=== PATIENT | female | born 1975 | race Two or more races ===

== ENCOUNTER 2017-12-29 16:53 | Emergency (ER) | payer BC ==
[2017-12-29] MEDS ORDERED: Diphtheria,Pertussis(Acell),Tetanus Vaccine 0.5 ML Syringe IM ONE (17:09)
[2017-12-29] MEDS ORDERED: Lidocaine 1% 20 ML MDV INJECT ONE (17:09)
[2017-12-29] MEDS ORDERED: Insulin Regular, Human 100 Units/ML 10 ML Vial IVPUSH ONE (17:18)
--- NOTE | 2017-12-29 17:44 | EDM.PDOC ---
ED HPI GENERAL MEDICAL PROBLEM - General Chief Complaint: Laceration Stated Complaint: LACERATION RT THUMB Time Seen by Provider: 12/29/17 17:40 Source of Information: Reports: Patient - History of Present Illness INITIAL COMMENTS - FREE TEXT/NARRATIVE: HISTORY AND PHYSICAL: History of present illness: [Patient cut herself on her dorsal vomiting while reaching into a limiting closet scraping her thumb on a piece of metal has linear laceration over the interphalangeal joint on the right thumb Socially 1 inch linear laceration no bleeding at current injury occurred at 1 PM currently 6 PM No fever nausea vomiting chills sweats no redness warmth or pus drainage unaffected above the base of the thumb entirely neurovascularly intact tendon function flexor and extension are intact pre-and post suture ] Review of systems: As per history of present illness and below otherwise all systems reviewed and negative. Past medical history: As per history of present illness and as reviewed below otherwise noncontributory. Surgical history: As per history of present illness and as reviewed below otherwise noncontributory. Social history: No reported history of drug or alcohol abuse. Family history: As per history of present illness and as reviewed below otherwise noncontributory. Physical exam: HEENT: Atraumatic, normocephalic, pupils reactive, negative for conjunctival pallor or scleral icterus, mucous membranes moist, throat clear, neck supple, nontender, trachea midline. Lungs: Clear to auscultation, breath sounds equal bilaterally, chest nontender. Heart: S1S2, regular, negative for clicks, rubs, or JVD. Abdomen: Soft, nondistended, nontender. Negative for masses or hepatosplenomegaly. Negative for costovertebral tenderness. Pelvis: Stable nontender. Genitourinary: Deferred. Rectal: Deferred. Extremities: Atraumatic, negative for cords or calf pain. Neurovascular unremarkable. Neuro: Awake, alert, oriented. Cranial nerves II through XII unremarkable. Cerebellum unremarkable. Motor and sensory unremarkable throughout. Exam nonfocal. Skin/right thumb as per history of present illness otherwise unremarkable Diagnostics: [Clinical ] Therapeutics: [Lidocaine 1% no epinephrine Tetanus status is updated today Wound Cleansed and explored #2 4-0 Prolene sutures interrupted 1 mL lidocaine for anesthesia No complication no complaint Standard wound care instructions Sutures out in 10 days Splint for wound protection ] Impression: [1 inch linear laceration] Definitive disposition and diagnosis as appropriate pending reevaluation and review of above. Right 1-Thumb Pain Score (Numeric/FACES): 7 - Related Data Allergies Allergy/AdvReac Type Severity Reaction Status Date / Time No Known Allergies Allergy Verified 12/29/17 17:03 Home Meds: Home Meds . [No Known Home Meds] 12/29/17 [History] Past Medical History Other HEENT History: wears glasses Cardiovascular History: Reports: High Cholesterol Gastrointestinal History: Reports: GERD, Other (See Below) Other Gastrointestinal History: "my liver is abnormal in color" Genitourinary History: Reports: None [facility] [employer] History: Reports: Ectopic , Musculoskeletal History: Reports: Arthritis Psychiatric History: Reports: Depression - Infectious Disease History Infectious Disease History: Reports: Chicken Pox - Past Surgical History Head Surgeries/Procedures: Reports: None Female Surgical History: Reports: Tubal Ligation Social & Family History - Family History Family Medical History: Noncontributory - Tobacco Use Smoking Status *Q: Current Every Day Smoker Years of Tobacco use: 25 Packs/Tins Daily: 0.8 - Recreational Drug Use Recreational Drug Use: No ED ROS GENERAL - Review of Systems Review Of Systems: ROS reveals no pertinent complaints other than HPI. ED EXAM, SKIN/RASH Exam: See Below Course - Vital Signs Last Recorded V/S: Last Vital Signs Temp Pulse 77 12/29/17 17:01 Resp 18 12/29/17 17:01 BP Pulse Ox 94 L 12/29/17 17:01 - Orders/Labs/Meds Orders: Active Orders 24 hr Category Date Time Status Vaccines to be Administered [RC] PER UNIT ROUTINE Care 12/29/17 17:09 Active Meds: Medications Discontinued Medications Generic Name Dose Route Start Last Admin Trade Name Freq PRN Reason Stop Dose Admin Diphtheria/Tetanus/Acell Pertussis 0.5 ml 12/29/17 17:09 Adacel IM 12/29/17 17:10 .ONCE ONE Lidocaine HCl 20 ml 12/29/17 17:09 Xylocaine 1% INJECT 12/29/17 17:10 ONETIME ONE Departure - Departure Time of Disposition: 17:43 Disposition: Home, Self-Care 01 Condition: Good Clinical Impression: Laceration - Discharge Information Referrals: Jenn Ponce DO [Primary Care Provider] - Forms: ED Department Discharge Additional Instructions: Standard wound care instructions Keep wound clean and dry for 48 hours Neosporin Band-Aid Status is updated today Splint for protection Return if redness warmth or pus drainage should this develop Sutures out in 10 days The following information is given to patients seen in the emergency department who are being discharged to home. This information is to outline your options for follow-up care. We provide all patients seen in our emergency department with a follow-up referral. The need for follow-up, as well as the timing and circumstances, are variable depending upon the specifics of your emergency department visit. If you don't have a primary care physician on staff, we will provide you with a referral. We always advise you to contact your personal physician following an emergency department visit to inform them of the circumstance of the visit and for follow-up with them and/or the need for any referrals to a consulting specialist. The emergency department will also refer you to a specialist when appropriate. This referral assures that you have the opportunity for follow-up care with a specialist. All of these measure are taken in an effort to provide you with optimal care, which includes your follow-up. Under all circumstances we always encourage you to contact your private physician who remains a resource for coordinating your care. When calling for follow-up care, please make the office aware that this follow-up is from your recent emergency room visit. If for any reason you are refused follow-up, please contact the [facility] emergency department at and asked to speak to the emergency department charge nurse. - My Orders Last 24 Hours: My Active Orders 12/29/17 17:09 Vaccines to be Administered [RC] PER UNIT ROUTINE - Assessment/Plan Last 24 Hours: My Active Orders 12/29/17 17:09 Vaccines to be Administered [RC] PER UNIT ROUTINE
[2017-12-29 18:14] VITALS: BP 126/74
== END 2017-12-29 18:12 | disposition home or self-care (01) ==
LOC: MW.ED 16:53
DX: S61.011A Laceration without foreign body of right thumb without damage to nail, initial encounter (principal); F17.210 Nicotine dependence, cigarettes, uncomplicated; W45.8XXA Other foreign body or object entering through skin, initial encounter; Z23 Encounter for immunization
CPT/HCPCS: 12001; 90471; 90715; 99282; 99282-25

== ENCOUNTER 2020-01-22 19:45 | Emergency (ER) | payer BC ==
[2020-01-22 20:14] VITALS: BP 146/103; PULSE 113
--- NOTE | 2020-01-22 20:43 | EDM.PDOC ---
ED HPI GENERAL MEDICAL PROBLEM - General Chief Complaint: Laceration Stated Complaint: NEED STICHES Time Seen by Provider: 01/22/20 20:42 Source of Information: Reports: Patient History Limitations: Reports: No Limitations - History of Present Illness INITIAL COMMENTS - FREE TEXT/NARRATIVE: HISTORY AND PHYSICAL: History of present illness: Patient is a 44-year-old female presents to the ED for laceration. Patient states she cut her left pinky finger this evening while cutting some bread. She states she is UTD on tetanus Review of systems: As per history of present illness and below otherwise all systems reviewed and negative. Past medical history: As per history of present illness and as reviewed below otherwise noncontributory. Surgical history: As per history of present illness and as reviewed below otherwise noncontributory. Social history: No reported history of drug or alcohol abuse. Family history: As per history of present illness and as reviewed below otherwise noncontributory. Physical exam: General: Patient sitting comfortably in no acute distress and nontoxic appearing HEENT: Atraumatic, normocephalic, pupils reactive, negative for conjunctival pallor or scleral icterus, mucous membranes moist, throat clear, neck supple, nontender, trachea midline. No meningeal signs. Lungs: Clear to auscultation, breath sounds equal bilaterally, chest nontender. Heart: S1S2, regular, negative for clicks, rubs, or overt murmur. Abdomen: Soft, nondistended, nontender. Negative for masses or hepatosplenomegaly. Negative for costovertebral tenderness. No rigidity, rebound , guarding. Pelvis: Stable nontender. Genitourinary: Deferred. Rectal: Deferred. Extremities: 1cm laceration to the pavon surface of the left hand at the CMP of the pinky finger. Full ROM of the finger. negative for cords or calf pain. Neurovascular unremarkable. Neuro: Awake, alert, oriented. Cranial nerves II through XII unremarkable. Cerebellum unremarkable. Motor and sensory unremarkable throughout. Exam nonfocal. Notes: Diagnostics: none Therapeutics: lac repair - see procedure note Prescriptions: none Impression: Laceration Plan: Keep the area clean and dry as instructed Follow up for suture removal in 10-14 days Return to ED as needed as discussed Definitive disposition and diagnosis as appropriate pending reevaluation and review of above. left little finger Pain Score (Numeric/FACES): 8 - Related Data Allergies Allergy/AdvReac Type Severity Reaction Status Date / Time No Known Allergies Allergy Verified 01/22/20 20:14 Home Meds: Home Meds . [No Known Home Meds] 12/29/17 [History] Past Medical History - Past Health History Medical/Surgical History: Denies Medical/Surgical History Other HEENT History: wears glasses Cardiovascular History: Reports: High Cholesterol Gastrointestinal History: Reports: GERD, Other (See Below) Other Gastrointestinal History: "my liver is abnormal in color" Genitourinary History: Reports: None [employer] History: Reports: Ectopic , Musculoskeletal History: Reports: Arthritis Psychiatric History: Reports: Depression - Infectious Disease History Infectious Disease History: Reports: Chicken Pox - Past Surgical History Head Surgeries/Procedures: Reports: None Female Surgical History: Reports: Tubal Ligation Social & Family History - Family History Family Medical History: Noncontributory - Tobacco Use Smoking Status *Q: Current Every Day Smoker Years of Tobacco use: 25 Packs/Tins Daily: 1 - Recreational Drug Use Recreational Drug Use: No ED ROS GENERAL - Review of Systems Review Of Systems: Comprehensive ROS is negative, except as noted in HPI. ED EXAM, SKIN/RASH Exam: See Below (see Dictation) ED SKIN PROCEDURES - Laceration/Wound Repair Left Digit - 5th (Baby) Appearance: Superficial, Subcutaneous, Linear, Clean Distal NVT: Neuro & Vascular Intact, No Tendon Injury Anesthetic Type: Local Local Anesthesia - Lidocaine (Xylocaine): 1% Plain Local Anesthetic Volume: 3cc Skin Prep: Chlorhexidine (Hibiciens), Saline Saline Irrigation (cc's): 250 Exploration/Debridement/Repair: Wound Explored, In a Bloodless Field, Explored to Base, No Foreign Material Found Closed with: Sutures Lac/Wound length In cm: 1 Suture Size: 4-0 # of Sutures: 4 Suture Type: Nylon, Interrupted, Simple Course - Vital Signs Last Recorded V/S: Last Vital Signs Temp 98.1 F 01/22/20 20:11 Pulse 113 H 01/22/20 20:11 Resp 18 01/22/20 20:11 BP 146/103 H 01/22/20 20:11 Pulse Ox 97 01/22/20 20:11 - Orders/Labs/Meds Meds: Medications Discontinued Medications Generic Name Dose Route Start Last Admin Trade Name Freq PRN Reason Stop Dose Admin Lidocaine HCl 5 ml 01/22/20 20:42 Xylocaine-Mpf 1% INJECT 01/22/20 20:43 ONETIME ONE Departure - Departure Time of Disposition: 21:15 Disposition: Home, Self-Care 01 Condition: Good Clinical Impression: Laceration of left little finger - Discharge Information Instructions: Laceration Care, Adult, [id number] Referrals: Jenn Ponce DO [Primary Care Provider] - Forms: ED Department Discharge Additional Instructions: The following information is given to patients seen in the emergency department who are being discharged to home. This information is to outline your options for follow-up care. We provide all patients seen in our emergency department with a follow-up referral. The need for follow-up, as well as the timing and circumstances, are variable depending upon the specifics of your emergency department visit. If you don't have a primary care physician on staff, we will provide you with a referral. We always advise you to contact your personal physician following an emergency department visit to inform them of the circumstance of the visit and for follow-up with them and/or the need for any referrals to a consulting specialist. The emergency department will also refer you to a specialist when appropriate. This referral assures that you have the opportunity for follow-up care with a specialist. All of these measure are taken in an effort to provide you with optimal care, which includes your follow-up. Under all circumstances we always encourage you to contact your private physician who remains a resource for coordinating your care. When calling for follow-up care, please make the office aware that this follow-up is from your recent emergency room visit. If for any reason you are refused follow-up, please contact the [facility] Emergency Department at and asked to speak to the emergency department charge nurse. [facility] [address] [place] [id number] [facility] [address] [place] [id number] Keep the area clean and dry as instructed Follow up for suture removal in 10-14 days Return to ED as needed as discussed Sepsis Event Note - Evaluation Sepsis Screening Result: No Definite Risk - Focused Exam Vital Signs: Vital Signs Temp Pulse Resp BP Pulse Ox 01/22/20 20:11 98.1 F 113 H 18 146/103 H 97 Date Exam was Performed: 01/22/20 Time Exam was Performed: 21:57
== END 2020-01-22 21:35 | disposition home or self-care (01) ==
LOC: MW.ED 19:45
DX: S61.217A Laceration without foreign body of left little finger without damage to nail, initial encounter (principal); M19.90 Unspecified osteoarthritis, unspecified site; F17.210 Nicotine dependence, cigarettes, uncomplicated; W26.0XXA Contact with knife, initial encounter
CPT/HCPCS: 12001; 99282

== ENCOUNTER 2020-09-13 16:38 | Emergency (ER) | payer BC ==
[2020-09-13] MEDS ORDERED: Octyl 2-Cyanoacrylate 1 Tube TOP ONE (17:25)
--- NOTE | 2020-09-13 17:29 | EDM.PDOC ---
ED HPI GENERAL MEDICAL PROBLEM - General Chief Complaint: Laceration Stated Complaint: LT POINTER FINGER LACERATION Time Seen by Provider: 09/13/20 17:15 Source of Information: Reports: Patient History Limitations: Reports: No Limitations - History of Present Illness INITIAL COMMENTS - FREE TEXT/NARRATIVE: History of present illness: [Patient is 45-year-old female who presents with a laceration to her left index finger on the palmar side. She states that she was cutting a potato and it slipped and cut her finger. Initially significant amount of bleeding, it has since subsided with pressure. States that her tetanus shot is up-to-date within the last 5 years. Denies any other injuries or complaints. Laceration does not involve the nailbed. Otherwise asymptomatic.] Review of systems: As per history of present illness and below otherwise all systems reviewed and negative. Past medical history: As per history of present illness and as reviewed below otherwise n oncontributory. Surgical history: As per history of present illness and as reviewed below otherwise noncontributory. Social history: No reported history of drug or alcohol abuse. Family history: As per history of present illness and as reviewed below otherwise noncontributory. Physical exam: General: Awake, alert, no acute distress, A&O X3. HEENT: Atraumatic, normocephalic, pupils reactive, negative for conjunctival pallor or scleral icterus, mask on Lungs: Clear to auscultation, breath sounds equal bilaterally, chest nontender. Heart: RRR, normal S1S2 Abdomen: Soft, nondistended, nontender. Pelvis: Stable nontender. Genitourinary: Deferred. Rectal: Deferred. Extremities: U-shaped superficial laceration to the palmar surface of the distal left second finger. Does not involve the nailbed. No active bleeding. Left finger is neurovascularly intact Neuro: Motor and sensory grossly intact throughout. Exam nonfocal. Diagnostics: [] Therapeutics: [] Impression: [] Plan: [] Definitive disposition and diagnosis as appropriate pending reevaluation and review of above. Left Finger-Index Pain Score (Numeric/FACES): 8 - Related Data Allergies Allergy/AdvReac Type Severity Reaction Status Date / Time No Known Allergies Allergy Verified 09/13/20 17:18 Home Meds: Home Meds . [No Known Home Meds] 12/29/17 [History] Past Medical History - Past Health History Medical/Surgical History: Denies Medical/Surgical History Other HEENT History: wears glasses Cardiovascular History: Reports: High Cholesterol Gastrointestinal History: Reports: GERD, Other (See Below) Other Gastrointestinal History: "my liver is abnormal in color" Genitourinary History: Reports: None [employer] History: Reports: Ectopic , Musculoskeletal History: Reports: Arthritis Psychiatric History: Reports: Depression - Infectious Disease History Infectious Disease History: Reports: Chicken Pox - Past Surgical History Head Surgeries/Procedures: Reports: None Female Surgical History: Reports: Tubal Ligation Social & Family History - Family History Family Medical History: Noncontributory ED ROS GENERAL - Review of Systems Review Of Systems: Comprehensive ROS is negative, except as noted in HPI. ED EXAM, SKIN/RASH Exam: See Below (see h and p) ED SKIN PROCEDURES - Laceration/Wound Repair Left Digit - 2nd (Index) Appearance: Superficial Distal NVT: Neuro & Vascular Intact, No Tendon Injury Skin Prep: Isopropyl Alcohol (Alcohol) Saline Irrigation (cc's): 10 Exploration/Debridement/Repair: Wound Explored, Explored to Base, No Foreign Material Found Closed with: Dermabond Lac/Wound length In cm: 2 Tetanus Status Addressed: Yes Complications: No Course - Vital Signs Last Recorded V/S: Last Vital Signs Temp 36.7 C 09/13/20 17:19 Pulse 82 09/13/20 17:19 Resp 18 09/13/20 17:19 BP 130/83 09/13/20 17:19 Pulse Ox 98 09/13/20 17:19 - Orders/Labs/Meds Meds: Medications Discontinued Medications Generic Name Dose Route Start Last Admin Trade Name Tia PRN Reason Stop Dose Admin Octyl Cyanoacrylate 1 applic 09/13/20 17:25 09/13/20 17:28 Dermabond Advance TOP 09/13/20 17:26 1 applic ONETIME ONE Administration Departure - Departure Time of Disposition: 17:33 Disposition: Home, Self-Care 01 Condition: Good Clinical Impression: Finger laceration - Discharge Information Instructions: Laceration Care, Adult Referrals: Jenn Ponce DO [Primary Care Provider] - Forms: ED Department Discharge Additional Instructions: Follow-up with primary care doctor. Return to the ER with any new or worsening symptoms. The following information is given to patients seen in the emergency department who are being discharged to home. This information is to outline your options for follow-up care. We provide all patients seen in our emergency department with a follow-up referral. The need for follow-up, as well as the timing and circumstances, are variable depending upon the specifics of your emergency department visit. If you don't have a primary care physician on staff, we will provide you with a referral. We always advise you to contact your personal physician following an emergency department visit to inform them of the circumstance of the visit and for follow-up with them and/or the need for any referrals to a consulting specialist. The emergency department will also refer you to a specialist when appropriate. This referral assures that you have the opportunity for follow-up care with a specialist. All of these measure are taken in an effort to provide you with optimal care, which includes your follow-up. Under all circumstances we always encourage you to contact your private physician who remains a resource for coordinating your care. When calling for follow-up care, please make the office aware that this follow-up is from your recent emergency room visit. If for any reason you are refused follow-up, please contact the [facility] Emergency Department at and asked to speak to the emergency department charge nurse. Sepsis Event Note (ED) - Focused Exam Vital Signs: Vital Signs Temp Pulse Resp BP Pulse Ox 09/13/20 17:19 36.7 C 82 18 130/83 98
[2020-09-13 17:40] VITALS: BP 119/83; PULSE 89
== END 2020-09-13 17:41 | disposition home or self-care (01) ==
LOC: MW.ED 16:38
DX: S61.211A Laceration without foreign body of left index finger without damage to nail, initial encounter (principal); Z98.51 Tubal ligation status; W26.9XXA Contact with unspecified sharp object(s), initial encounter
CPT/HCPCS: 12001; 99282; A9270